=== PATIENT | female | born 1970 | race Two or more races ===

== ENCOUNTER 2022-08-16 07:30 | Inpatient (IN) | payer OTHER ==
[~2022-08-16] VITALS: Ht 160 cm; Wt 72.6 kg
[2022-08-16] MEDS ORDERED: BUPROPION XL300 MG PO (09:14)
[2022-08-16] MEDS ORDERED: LEVO-T25 MCG PO (09:14)
[2022-08-16] MEDS ORDERED: ZIAC 5-6.25 MG1 EACH PO (09:17)
[2022-08-16] MEDS ORDERED: CLONAZEPAM1 MG PO (09:17)
[2022-08-16] MEDS ORDERED: MONTELUKAST SOD10 MG PO (09:18)
[2022-08-16] MEDS ORDERED: MIRTAZAPINE30 M1 PO (09:18)
[2022-08-16] MEDS ORDERED: PEPCID40 MG PO (09:18)
[2022-08-19] MEDS ORDERED: PROVENTIL HFA6.7 GM (11:20)
[2022-08-19] MEDS ORDERED: CETIRIZINE HCL10 MG (11:20)
== END 2022-08-21 11:17 | disposition home or self-care (01) | DRG 743 ==
LOC: O/R 08-19 06:54 → EDBD 08-19 07:30 → OB/GYN 08-19 07:30
PROVIDERS: ADMIT Student in an Organized Health Care Education/Training Program; ATTEND Student in an Organized Health Care Education/Training Program
PROC: 0UT74ZZ Resection of Bilateral Fallopian Tubes, Percutaneous Endoscopic Approach (ICD-10-PCS; 2022-08-19)
PROC: 0TJB8ZZ Inspection of Bladder, Via Natural or Artificial Opening Endoscopic (ICD-10-PCS; 2022-08-19)
PROC: 0UT94ZZ Resection of Uterus, Percutaneous Endoscopic Approach (ICD-10-PCS; principal; 2022-08-19 11:30)
DX: N80.03 Adenomyosis of the uterus (principal); Z20.822 Contact with and (suspected) exposure to COVID-19